=== PATIENT | female | born 1970 | race Caucasian/White ===

== ENCOUNTER 2016-09-22 01:05 | Emergency (ER) | payer OTHER ==
[~2016-09-22] VITALS: Ht 174 cm; Wt 118.2 kg
[2016-09-22 01:08] VITALS: BP 131/82; PULSE 83; RESP 16; O2SAT 99
--- NOTE | 2016-09-22 01:25 | ED.REPORT ---
HPI-Hand Prob/Inj Date of Service September 22, 2016 ED Provider: Yusuf Solares MD A left-handed 46 year old female with no pertinent medical history presents to the ED complaining of right thumb pain. The pt was working on a vent earlier this evening when she hit her right thumb, resulting in immediate pain. She believes that she "may have jammed or broken" the thumb. No other trauma is reported. Nursing Notes Stated Complaint: POSS BROKEN THUMB,RT HAND Chief Complaint: Extremity Trauma Nursing Notes Reviewed: Yes Allergies: Coded Allergies: No Known Allergies (Unverified , 09/22/16) General Time Seen by Provider: 01:21 Chief Complaint Hand injury right Hx Obtained From: Patient Arrived By: Walk-in Onset Occurred: 1 - 4 hours ago Symptom Duration: Since onset Recent Healthcare: No recent doctor visit, No recent hospitalization Similar Sx Previous: No Past Medical History Past Medical History none reported Past Surgical History none reported Smoking History Unknown if Ever Smoker Social History Other Social History: Good social support Ambulatory Status Independent Review of Systems Constitutional: Denies: Fever Musculoskeletal: Reports: Extremity pain (right hand), Denies: Back pain Skin: Denies Rash Complete sys rev & neg: except as marked. Respiratory: Denies: Non-productive cough, Shortness of breath Cardiovascular: Denies: Chest pain GI: Denies: Abdominal pain Physical Exam Initial Vital Signs Vital Signs (First) Date Time Temp Pulse Resp B/P Pulse Ox O2 Delivery O2 Flow Rate FiO2 09/22/16 01:08 36.9 83 16 131/82 99 Room Air Initial VS: Reviewed, Vital signs normal Wrist / Hand: Neurologic intact, Vascular intact tenderness of the first MCP joint with swelling no laxity or deformity General/Constitutional: Awake, Alert Skin: Atraumatic, Color NL, No rash, Warm, Dry Neurologic: Oriented X3, Speech NL, No motor deficits, No sensory deficits Head / Eyes: Atraumatic, Normocephalic, PERRL, EOMI ENT: Atraumatic, Airway patent, Mucous membranes moist Neck: Atraumatic, Supple, Full range of motion Respiratory / Chest: Atraumatic, Breath sounds NL, Breath sounds = bilat, No respiratory distress Cardiovascular: Heart rate NL, Regular rhythm, Heart sounds NL Abdomen: Atraumatic, Soft, Non-tender Back: Atraumatic, Full range of motion Upper Extremity / MS: Atraumatic, Full range of motion Lower Extremity / Pelvis / MS: Atraumatic, Full range of motion Psychiatric: Affect NL, Mood NL Interpretation & Diagnostics X-Ray Interpretation Xray Interpretation: no acute findings X-Ray Ordered: Hand right Interpretation / Wet Read by: Wet read ED physician Re-Eval/Medical Decision Med Decision/Clinical Course 46-year-old with sprained thumb, no evidence of fracture or dislocation. There is no joint laxity. Re-Evaluation/Progress : Time of Eval: 01:54 Patient Status: Condition improved Re-Evaluation/Progress Note: Pt rechecked, who is comfortable. She is informed of her radiology results. The diagnosis and plan for discharge are discussed. The pt understands and agrees with the plan. All questions are addressed at this time. Counseled Regarding: Diagnosis, Lab results, Need for follow-up, When/why to return to ED Discharge & Departure Primary Impression: Sprain of hand, thumb, right Encounter type: initial encounter Sprain of finger site: metacarpophalangeal joint Qualified Code: S63.641A - Sprain of metacarpophalangeal joint of right thumb, initial encounter Disposition: Home Discharge Condition All VS Reviewed: Yes Condition: Stable Patient Instructions: Skier's Thumb (ED) Additional Instructions: No fracture or dislocation. It appears you have injured the ligament, a sprain. Use the splint to immobilize this while it heals. He will likely have to wear the splint for 2-4 weeks. Follow up with her primary provider as needed for persistent symptoms. You were given Vicodin 2 tablets in the emergency room. Tylenol and/or ibuprofen as needed for continued discomfort. Referrals: Sana Dow MD (PCP) Scribe Attestation Portions of this note were transcribed by Miko Richardson. I, Dr. Solares personally performed the history, physical exam and medical decision-making; I reviewed and confirmed the accuracy of the information in the transcribed note. Signed by: Halle Henley, 09/22/16 and 0237. copies to: Sana Dow MD, Howard L MD September 22, 2016 01:25 MIKO RICHARDSON September 22, 2016 01:56
[2016-09-22] MEDS ORDERED: HYDROcodone-APAP 5-325 mg Tablet PO ONE (02:00)
--- NOTE | 2016-09-22 09:47 | DRSVH ---
PROCEDURE: X-RAY RIGHT HAND, MINIMUM THREE VIEWS ([id number]) INDICATIONS: JAMMED THUMB TECHNIQUE: 3 views of the hand(s) acquired. COMPARISON: None. FINDINGS: Bones: No fractures or dislocations. Carpal bones are normally aligned. No suspicious bony lesions . Soft tissues: No suspicious soft tissue calcifications. IMPRESSION: No trauma found. Dictated by: Sixto Butts M.D. on 09/22/2016 at 9:45 Approved by: Sixto Butts M.D. on 09/22/2016 at 9:46
== END 2016-09-22 02:08 | disposition home or self-care (01) ==
LOC: SED 01:05
DX: S63.641A Sprain of metacarpophalangeal joint of right thumb, initial encounter (principal); W22.8XXA Striking against or struck by other objects, initial encounter; Y93.89 Activity, other specified; Y92.009 Unspecified place in unspecified non-institutional (private) residence as the place of occurrence of the external cause; Y99.8 Other external cause status